=== PATIENT | female | born 1990 | race Caucasian/White ===

== ENCOUNTER 2017-11-29 12:45 | Outpatient (CLI) | payer MEDICAID ==
[2017-11-29] MEDS ORDERED: LIDOCAINE 1% INJ-PF (10 MG/ML) 30 ML SDV ONE (13:19)
[2017-11-29] MEDS ORDERED: OXYTOCIN/NORMAL SALINE 0 UNIT/0 ML RTUINJ ONE (13:19)
[2017-11-29] MEDS ORDERED: MISOPROSTOL 0.2 MG TABLET ONE (13:19)
[2017-11-29 13:20] LABS: APPEARANCE,URINE SLIGHTLY-CLOUDY; BILIRUBIN,URINE NEGATIVE (NEGATIVE); COLOR,URINE YELLOW; GLUCOSE, URINE NEGATIVE (NEGATIVE); KETONES,URINE NEGATIVE (NEGATIVE); LEUKOCYTE ESTERASE,URINE LARGE (NEGATIVE); NITRITE,URINE NEGATIVE (NEGATIVE); PROTEIN,URINE NEGATIVE (NEGATIVE); URINE SPECIFIC GRAVITY 1.015
[2017-11-29 13:33] LABS: URINE AMPHETAMINES SCREEN NEGATIVE; URINE BARBITURATES SCREEN NEGATIVE; URINE BENZODIAZEPINES SCREEN NEGATIVE; URINE COCAINE SCREEN NEGATIVE; URINE MARIJUANA (THC) SCREEN NEGATIVE; URINE PHENCYCLIDINE SCREEN NEGATIVE
[2017-11-29 13:37] LABS: URINE METHADONE SCREEN UNCONFIRMED POSITIVE
--- NOTE | 2017-11-29 14:34 | RADIOLOGY REPORT (SQ) ---
EXAM DESCRIPTION: U/S OB LIMITED COMPLETED DATE/TIME: 11/29/2017 2:21 pm REASON FOR STUDY: dates, placenta location, growth, LUZ COMPARISON: None. TECHNIQUE: Limited transabdominal grayscale ultrasound for evaluation of specific requested obstetri etta parameters. LIMITATIONS: None. FINDINGS: CERVICAL LENGTH: Not recorded. Closed. LUZ: 7.6 cm. Cm. FHR: 124 beats per minute. PRESENTATION: Cephalic. OTHER: Gestational age by ultrasound 38 weeks 3 days. Estimated body weight 3478 g +/-515 g IMPRESSION: LIMITED OBSTETRICAL ULTRASOUND WITH MEASURED PARAMETERS DELINEATED ABOVE. Trimester of : Third trimester - 28 weeks to delivery. TECHNICAL DOCUMENTATION: JOB ID: [id number] [employer]- All Rights Reserved Reading location - IP/workstation name: [email or web address]
[2017-11-29 14:54] LABS: CHLAM PCR NOT DETECTED (NOT DETECT); GON PCR NOT DETECTED (NOT DETECT)
[2017-11-29 15:01] LABS: ABSOLUTE EOSINOPHILS # (AUTO) 0.1 10^3/uL (0.0-0.6); ABSOLUTE LYMPHOCYTES (AUTO) 2.2 10^3/uL (0.5-4.7); ABSOLUTE MONOCYTES (AUTO) 0.7 10^3/uL (0.1-1.4); ABSOLUTE NEUT (AUTO) 10.6 10^3/uL (1.7-8.2); BASOPHILS % (AUTO) 0.2 % (0-2); EOSINOPHILS % (AUTO) 0.4 % (0-6); HEMATOCRIT 34.5 % (36.0-47.0); HEMOGLOBIN 11.5 g/dL (12.0-15.5); LYMPHOCYTES % (AUTO) 16.2 % (13-45); MEAN CORPUSCULAR HEMOGLOBIN 27.3 pg (27.0-33.4); MEAN CORPUSCULAR HGB CONC 33.4 g/dL (32.0-36.0); MEAN CORPUSCULAR VOLUME 82 fl (80-97); MONOCYTES % (AUTO) 5.3 % (3-13); PLATELET COUNT 349 10^3/uL (150-450); RED BLOOD COUNT 4.22 10^6/uL (3.72-5.28); SEGMENTED NEUTROPHILS % (AUTO) 77.9 % (42-78); TOTAL CELLS COUNTED % (AUTO) 100 %; WHITE BLOOD COUNT 13.6 10^3/uL (4.0-10.5)
[2017-11-29 15:01] LABS: RUBELLA INTERPRETATION POSITIVE
== END 2017-11-29 16:57 | disposition home or self-care (01) ==
LOC: LC 12:45
PROVIDERS: ATTEND Obstetrics & Gynecology
PROC: 4A1HXCZ Monitoring of Products of Conception, Cardiac Rate, External Approach (ICD-10-PCS; principal; 2017-11-29)
DX: O47.1 False labor at or after 37 completed weeks of gestation (principal); Z3A.38 38 weeks gestation of pregnancy
CPT/HCPCS: 36415; 76815; 80307; 80361; 81005; 85025; 86592; 86701; 86762; 86803; 86804; 86850; 86900; 86901; 87081; 87340; 87491; 87591; J2590; J3490

== ENCOUNTER 2018-12-02 20:19 | Emergency (ER) | payer SELFPAY ==
--- NOTE | 2018-12-02 20:46 | ER Document Report ---
ED Medical Screen (RME) - General Chief Complaint: Medical Complaint Stated Complaint: OTHER Time Seen by Provider: 12/02/18 20:35 Primary Care Provider: NICKI SUAREZ MD [Primary Care Provider] - Follow up as needed Mode of Arrival: Ambulatory Information source: Patient, Law Enforcement Notes: 28-year-old female presents with ELO for possible heroin placed in her vagina. ELO reports he cannot take her to correction until they are sure she does not have any illegal substance. Patient did consent to go to x-ray. I have greeted and performed a rapid initial assessment of this patient. A comprehensive ED assessment and evaluation of the patient, analysis of test results and completion of the medical decision making process will be conducted by additional ED providers. Dictation of this chart was performed using voice recognition software; therefore, there may be some unintended grammatical errors. TRAVEL OUTSIDE OF THE [place] IN LAST 30 DAYS: No - Related Data Allergies/Adverse Reactions: No Known Allergies Allergy (Unverified 11/29/17 13:19) Past Medical History - Social History Frequency of alcohol use: None Drug Abuse: None Physical Exam - Vital signs Vitals: Temp Pulse Resp BP Pulse Ox 98.1 F 129 H 17 128/88 H 98 12/02/18 20:25 12/02/18 20:25 12/02/18 20:25 12/02/18 20:25 12/02/18 20:25 Course - Vital Signs Vital signs: Temp Pulse Resp BP Pulse Ox 98.1 F 129 H 17 128/88 H 98 12/02/18 20:25 12/02/18 20:25 12/02/18 20:25 12/02/18 20:25 12/02/18 20:25 Doctor's Discharge - Discharge Referrals: NICKI SUAREZ MD [Primary Care Provider] - Follow up as needed
--- NOTE | 2018-12-02 21:03 | RADIOLOGY REPORT (SQ) ---
EXAM DESCRIPTION: XR PELVIS 1-2 VIEWS COMPLETED DATE/TME: 12/02/2018 20:38 CLINICAL HISTORY: 28 years, Female, possible heroin in vagina COMPARISON: None. EXAM DESCRIPTION: CLINICAL HISTORY: possible heroin in vagina COMPARISON: None FINDINGS: One view(s) submitted. Gas and stool in the rectum obscures detail. There is gas density projecting over the expected position of the vagina which could be superimposed bowel and gas in the rectum but foreign object is not excluded. Limited CT would provide greater detail if desired. No fracture or dislocation is identified. Bone marrow attenuation is unremarkable. No definite radiopaque foreign body is identified. IMPRESSION: No definite foreign body is identified but detail is limited because of significant stool and gas in the rectum. Limited CT would provide greater detail if desired.
--- NOTE | 2018-12-02 21:30 | ER Document Report ---
ED General - General Chief Complaint: Medical Complaint Stated Complaint: OTHER Time Seen by Provider: 12/02/18 20:35 Primary Care Provider: NICKI SUAREZ MD [ACTIVE STAFF] - Follow up as needed Mode of Arrival: Ambulatory TRAVEL OUTSIDE OF THE [place] IN LAST 30 DAYS: No - HPI Notes: 28-year-old female to the emergency department in police custody with complaints of possible vaginal foreign body. Please state that they picked up the patient and a friend about 3 hours ago while they were doing heroin. The police state that they confiscated heroin from the car as well as from the friend who would put it up into her vagina. Friend also stated that the patient had hair when in a baggy in her vagina. The patient did allow for x-ray to evaluate for possible foreign body. However, x-ray was found to be equivocal cool here in the emergency department and patient will not allow for pelvic exam for further evaluation. The police are planning on getting a search warrant. The patient denies any other complaints. - Related Data Allergies/Adverse Reactions: No Known Allergies Allergy (Unverified 11/29/17 13:19) Past Medical History - General Information source: Patient, Law Enforcement - Social History Smoking Status: Current Every Day Smoker Frequency of alcohol use: Occasional Drug Abuse: Heroin Family History: Reviewed & Not Pertinent Patient has suicidal ideation: No Patient has homicidal ideation: No Review of Systems - Review of Systems Constitutional: denies: Chills, Fever EENT: No symptoms reported Cardiovascular: denies: Chest pain, Palpitations, Heart racing, Orthopnea, Dyspnea, Syncope, Dizziness, Lightheaded Respiratory: denies: Cough, Hurts to breathe, Short of breath Gastrointestinal: denies: Abdominal pain, Diarrhea, Nausea, Vomiting Female Genitourinary: See HPI -: Yes All other systems reviewed and negative Physical Exam - Vital signs Vitals: Temp Pulse Resp BP Pulse Ox 98.1 F 129 H 17 128/88 H 98 12/02/18 20:25 12/02/18 20:25 12/02/18 20:25 12/02/18 20:25 12/02/18 20:25 Interpretation: Tachycardic - General General appearance: Appears well, Alert In distress: None Notes: Patient withdrawn and noncommunicative, she will not allow for physical exam currently. - Psychological Associated symptoms: Flat affect, Uncooperative Course - Re-evaluation Re-evalutation: 12/02/18 21:29 Discussed patient with nighttime ER attending, Dr. Silva. We reviewed x-ray and rad findings together. We both agree that the rad reading and are visualized assessment of the x-ray cannot definitively rule out a foreign body in patient. Have updated police about this reading as well as patient. Offered patient to consent to pelvic exam and rectal exam. She has declined. She states that the police are welcome to get a search warrant. Please are working on getting a search warrant currently. Dr. Silva is aware. 12/02/18 23:[address] Dr. Angelo and Dr. Arredondo, ER attendings. We are in a greeance that despite there being a search warrant, that because of the patient is medically stable, we will not perform an exam to search the patient. I have informed the police of this matter. We have further notified hospital administration as well. We have contact our medical claims examiner, Dr. Rolle, and he also agrees that given patient's stability, body cavity exam will not be performed. The police did contact the DA and the DA did let them know that we have the right to not perform the exam given patient's stability. Will discharge the patient to police custody. Of importance, I did educate that patient on the dangers of narcotic abuse and that she could lose her life if she indeed is hiding heroin in her body. She voiced understanding but provided no further consent for evaluation. Impression: Hx of Heroin Abuse. Police brought in for possible retained FB of heroin baggie. XR was equivocable but did not show geno baggie. Given patient's stability will release to police custody. ER attending and I have discussed at length and we agree with this plan. - Vital Signs Vital signs: Temp Pulse Resp BP Pulse Ox 98.1 F 129 H 17 128/88 H 98 12/02/18 20:25 12/02/18 20:25 12/02/18 20:25 12/02/18 20:25 12/02/18 20:25 Discharge - Discharge Clinical Impression: History of heroin abuse, In police custody Condition: Stable Disposition: HOME, SELF-CARE Additional Instructions: RECREATIONAL USE OF HEROIN IS DANGEROUS TO YOUR HEALTH. IT CAN CAUSE YOU TO FROM RESPIRATORY DEPRESSION. YOU WILL BE DISCHARGED TO POLICE CUSTODY. Referrals: NICKI SUAREZ MD [ACTIVE STAFF] - Follow up in 1 week
[2018-12-02 23:16] VITALS: BP 132/78
== END 2018-12-02 23:23 | disposition home or self-care (01) ==
LOC: ER 20:19
DX: T19.2XXA Foreign body in vulva and vagina, initial encounter (principal); F17.200 Nicotine dependence, unspecified, uncomplicated; Z86.59 Personal history of other mental and behavioral disorders
CPT/HCPCS: 72170; 99283

== ENCOUNTER 2018-12-13 06:09 | Emergency (ER) | payer OTHER ==
[2018-12-13] MEDS ORDERED: PROCHLORPERAZINE EDISYLATE INJ 10 MG/2 ML VIAL IV ONE (08:19)
--- NOTE | 2018-12-13 08:22 | ER Document Report ---
ED General - General Chief Complaint: Nausea/Vomiting/Diarrhea Stated Complaint: POSSIBLE OVERDOSE Time Seen by Provider: 12/13/18 08:02 TRAVEL OUTSIDE OF THE [place] IN LAST 30 DAYS: No - HPI Notes: 28-year-old female presents with abdominal pain nausea and vomiting. Onset approximate 2 hours ago while in long term. Epigastric pain, burning, sharp and crampy. Vomiting food and fluid, no coffee grounds or hematemesis. Of note, she states proximal me 3 days ago she ingested a packet containing 2 g of meth amphetamine. Last bowel movement was just prior to coming in. No blood in her stool or vomitus. Moderate intensity, gradual onset, nonradiating. No other modifying factors, no other associated symptoms, no other provocative or palliative factors. - Related Data Allergies/Adverse Reactions: No Known Allergies Allergy (Unverified 11/29/17 13:19) Past Medical History - Social History Smoking Status: Unknown if Ever Smoked Drug Abuse: Heroin, Marijuana, Methamphetamine Family History: Reviewed & Not Pertinent Patient has suicidal ideation: No Patient has homicidal ideation: No Review of Systems - Review of Systems Notes: Review of systems as in the history of present illness, otherwise negative x 10 systems. Physical Exam - Vital signs Vitals: Temp Pulse Resp BP Pulse Ox 98.1 F 71 16 127/74 H 100 12/13/18 06:15 12/13/18 06:15 12/13/18 06:15 12/13/18 06:15 12/13/18 06:15 - Notes Notes: General: Well developed . HEENT: Normocephalic, atraumatic. Pupils equal round reactive to light. No JVD. Chest: No trauma. Respiratory: Good air exchange, normal excursion. Cardiac: Regular rhythm. No murmurs or gallops. Abdomen: Soft, no guarding rigidity rebound. Mild to moderate epigastric tenderness Back: No asymmetry or gross abnormality. Motor: Grossly normal power and tone. Neurologic: Alert, nonfocal. Cranial nerves II-12 are intact. Sensation intact. Vascular: Well perfused. Normal peripheral pulses. Skin: No petechiae or purpura. Course - Re-evaluation Re-evalutation: 12/13/18 08:21 28-year-old female with epigastric pain, consider Peptic ulcer disease, pancreatitis, biliary tract disease other etiology. Of concern is her ingestion of methamphetamine. However, this is approximately 2 to 3 days out. We will proceed with screening KUB, serial exams and reevaluate. IV fluids, analgesics, labs, serial exams. 12/13/18 13:25 Labs reviewed, CBC shows no leukocytosis, chemistries ALT is lipase unremarkable, previous test negative. KUB shows no obvious foreign body. I did receive a call from the radiologist indicating there was significant left-sided sacroiliitis, this apparently was present on a KUB a pelvis film from approximately 11 days ago but not commented on. Question was questioned more at length, states she has had pain in this left SI joint area since she delivered her child approximately 1 year ago. She is forthright and adamantly admits admits to a long history of IV drug abuse, especially around that time. She states she has been "clean" with IV drugs for the last couple of months. Given the after mentioned findings, there is concern over the potential for infe ctious sacroiliitis or osteomyelitis. I did add on sed rate and CRP, these are normal. Consultations placed with infectious disease from [facility], I spoke with Dr. Marina, after extensive discussion of the patient's findings, lab values and history, he felt that she likely had burned out her infection and did not require further admission and inpatient work-up. However, he agreed with cultures which have been obtained, these will be followed over the next 24 to 48 hours. Patient is already been informed of the findings, she did she develop any worsening symptoms, fever, other infectious symptoms she will follow-up immediately. Poison center was also consulted with regard to her ingestion. Given that she is 3 days out, do not feel there was any additional therapy or observation warranted. Serial exam showed benign abdomen, she is no longer vomiting, feels much better and has no abdominal tenderness. - Vital Signs Vital signs: Temp Pulse Resp BP Pulse Ox 98.1 F 71 16 127/74 H 100 12/13/18 06:15 12/13/18 06:15 12/13/18 06:15 12/13/18 06:15 12/13/18 06:15 - Laboratory Result Diagrams: 12/13/18 08:45 12/13/18 08:45 Laboratory results interpreted by me: 12/13/18 12/13/18 08:45 08:45 WBC 12.3 H MCH 26.7 L Absolute Neuts (auto) 9.8 H Seg Neutrophils % 79.8 H Carbon Dioxide 21 L Calcium 10.8 H Total Protein 8.7 H Albumin 5.2 H Discharge - Discharge Clinical Impression: Abdominal pain Qualifiers: Abdominal location: unspecified location Qualified Code(s): R10.9 - Unspecified abdominal pain Disposition: HOME, SELF-CARE Instructions: Abdominal Pain ([facility]) Additional Instructions: You must follow-up with your primary care doctor the next 24 to 48 hours. Prescriptions: Omeprazole Magnesium [Prilosec] 20 mg PO DAILY #14 Referrals: [facility] [NO LOCAL MD] - Follow up as needed
[2018-12-13 08:54] LABS: ABSOLUTE LYMPHOCYTES (AUTO) 1.7 10^3/uL (0.5-4.7); ABSOLUTE MONOCYTES (AUTO) 0.7 10^3/uL (0.1-1.4); ABSOLUTE NEUT (AUTO) 9.8 10^3/uL (1.7-8.2); BASOPHILS % (AUTO) 0.4 % (0-2); EOSINOPHILS % (AUTO) 0.2 % (0-6); HEMOGLOBIN 14.1 g/dL (12.0-15.5); LYMPHOCYTES % (AUTO) 14.1 % (13-45); MEAN CORPUSCULAR HEMOGLOBIN 26.7 pg (27.0-33.4); MEAN CORPUSCULAR HGB CONC 33.6 g/dL (32.0-36.0); MEAN CORPUSCULAR VOLUME 80 fl (80-97); MONOCYTES % (AUTO) 5.5 % (3-13); PLATELET COUNT 373 10^3/uL (150-450); RED BLOOD COUNT 5.27 10^6/uL (3.72-5.28); RED CELL DISTRIBUTION WIDTH 13.4 % (11.5-14.0); SEGMENTED NEUTROPHILS % (AUTO) 79.8 % (42-78); TOTAL CELLS COUNTED % (AUTO) 100 %; WHITE BLOOD COUNT 12.3 10^3/uL (4.0-10.5)
[2018-12-13 09:14] LABS: ALBUMIN 5.2 g/dL (3.5-5.0); ALKALINE PHOSPHATASE 89 U/L (38-126); ANION GAP 14 (5-19); ASPARTATE AMINO TRANSFERASE 19 U/L (14-36); BILIRUBIN,DIRECT 0.2 mg/dL (0.0-0.4); BILIRUBIN,TOTAL 0.5 mg/dL (0.2-1.3); BLOOD UREA NITROGEN 16 mg/dL (7-20); CALCIUM 10.8 mg/dL (8.4-10.2); CARBON DIOXIDE 21 mmol/L (22-30); CHLORIDE 106 mmol/L (98-107); GLUCOSE 107 mg/dL (75-110); POTASSIUM 4.4 mmol/L (3.6-5.0); TOTAL PROTEIN 8.7 g/dL (6.3-8.2)
--- NOTE | 2018-12-13 09:31 | RADIOLOGY REPORT (SQ) ---
EXAM DESCRIPTION: KUB/ABDOMEN (SINGLE VIEW) COMPLETED DATE/TIME: 12/13/2018 9:16 am REASON FOR STUDY: Ingested methamphetamine packet COMPARISON: AP view of the pelvis from 12/02/2018. NUMBER OF VIEWS: One view. TECHNIQUE: Supine radiographic image of the abdomen acquired. LIMITATIONS: None. FINDINGS: BOWEL GAS PATTERN: Nonobstructive bowel gas pattern. CALCIFICATIONS: No calcifications. SOFT TISSUES: No radiopaque foreign body. HARDWARE: None in the abdomen. BONES: There is sclerosis on both sides of the right SI joint associated with erosions and widening o f the joint space without ankylosis OTHER: No other significant finding. IMPRESSION: Grade 3 right-sided sacroiliitis. COMMENT: This report was called to VANDANA ARIAS MD at09:24 on 12/13/2018. TECHNICAL DOCUMENTATION: JOB ID: [id number] [id number]- All Rights Reserved Reading location - IP/workstation name: [email or web address]
[2018-12-13 13:34] VITALS: BP 144/78
== END 2018-12-13 13:40 | disposition home or self-care (01) ==
LOC: ER 06:09
DX: R10.13 Epigastric pain (principal); R10.816 Epigastric abdominal tenderness; R11.2 Nausea with vomiting, unspecified; F11.10 Opioid abuse, uncomplicated; F12.10 Cannabis abuse, uncomplicated; F15.10 Other stimulant abuse, uncomplicated; M46.1 Sacroiliitis, not elsewhere classified
CPT/HCPCS: 36415; 87040; 83690; 85025; 85652; 81025; 86140; 80053; 74018; J0780